=== PATIENT | female | born 1975 | race Two or more races ===

== ENCOUNTER → 2019-04-25 | Outpatient (CLI) | payer MEDICAID ==
--- NOTE | 2019-04-26 08:30 | WOMENS IMAGING REPORT ---
EXAM DESCRIPTION: BILAT SCREENING MAMMO W/CAD COMPLETED DATE/TIME: 04/25/2019 3:54 pm REASON FOR STUDY: ROUTINE BILATERAL SCREENING;Z12.31 Z12.31 ENCNTR SCREEN MAMMOGRAM FOR MALIGNANT N EOPLASM OF TRACI COMPARISON: None. EXAM PARAMETERS: Standard craniocaudal and mediolateral oblique views of each breast recorded using digital acquisition. Read with the assistance of CAD. [employer] - [employer] Version 9.2 LIMITATIONS: None. FINDINGS: No suspicious masses, suspicious calcifications or architectural distortion. No areas of c oncern. IMPRESSION: Negative MAMMOGRAM. BIRADS 1 BREAST DENSITY: d. The breasts are extremely dense, which lowers the sensitivity of mammography. BIRAD: ASSESSMENT: 1 NEGATIVE RECOMMENDATION: ROUTINE SCREENING COMMENT: The patient has been notified of the results by letter per MQSA requirements. Additional no tification policies are in place for contacting patient with suspicious or incomplete findings. Quality ID #[id number]: The [employer] recommends an annual screening mammogram for women aged 40 years or over. This facility utilizes a reminder system to ensure that all patients receive reminder letters, and/or direct phone calls for appointments. This includes reminders for routine scr eening mammograms, diagnostic mammograms, or other Breast Imaging Interventions when appropriate. Th is patient will be placed in the appropriate reminder system. TECHNICAL DOCUMENTATION: FINDING NUMBER: (1) ASSESSMENT: (1) JOB ID: [id number] [employer]- All Rights Reserved Reading location - IP/workstation name: [email or web address]
== END ==
LOC: WI 15:24
PROVIDERS: ATTEND Nurse Practitioner Family
DX: Z12.31 Encounter for screening mammogram for malignant neoplasm of breast (principal)
CPT/HCPCS: 77067

== ENCOUNTER 2019-10-05 15:03 | Emergency (ER) | payer MEDICAID ==
--- NOTE | 2019-10-05 15:30 | ER Document Report ---
HPI - HPI Time Seen by Provider: 10/05/19 15:21 Notes: The patient was evaluated during the global Covid 19 pandemic and that diagnosis was suspected/considered upon their initial presentation. Their evaluation, treatment and testing was consistent with current guidelines for patients who present with complaints or symptoms that may be related to Covid 19. Heart rate is 94. Blood pressure 120/69. Temperature 98.3. SPO2 96% on room air not hypoxic. Patient states that she has had slight burning sensation in the throat for 2 to 3 days, sinus congestion for which she has been using Rhinase with some improvement in symptoms, has had a slightly dry cough. No fever. No shortness of breath. No chest pain. No abdominal pain. Has not taken other medications for symptoms. Patient's is a smoker Full physical exam could not be performed due to Covid 19 isolation protocols. Constitutional: Nontoxic appearance, no acute distress Eyes: Nonicteric, extraocular movements intact, sclera clear ENT: Mild clear rhinitis. Posterior pharynx noninjected nonerythematous Cardiovascular: No JVD Respiratory: Nonlabored breathing, no use of accessory muscles, no tachypnea Gastrointestinal: Abdomen not distended Musculoskeletal: Moves all extremities well, normal gait Skin: Normal color Neuro: Awake alert oriented x3, normal speech Psych: Normal mood and affect Patient presents with upper respiratory symptoms worrisome for viral etiology or allergies, unlikely that this is possible Covid 19 as patient has been self isolating at home and has almost no risk factors for exposure. Patient does not have emergency worrying symptoms such as difficulty breathing, shortness of br eath, chest pain, pressure, confusion or cyanosis. Patient appears suitable for discharge as they are not of an advanced age, do not have any chronic medical conditions that are uncontrolled such as diabetes, CAD, immune deficiency, chronic lung disease or chronic kidney disease. Patient's vital signs are stable and patient is nontoxic in appearance. Good return precautions have been discussed with the patient and/or family members. Patient verbalized understanding and is agreeable with discharge plan of care at this time. Past Medical History - Social History Smoking Status: Unknown if Ever Smoked Family History: Reviewed & Not Pertinent Vertical Provider Document - INFECTION CONTROL TRAVEL OUTSIDE OF THE [place] IN LAST 30 DAYS: No Discharge - Discharge Clinical Impression: Upper respiratory infection, viral, covid-19 evaluation Condition: Stable Disposition: HOME, SELF-CARE Additional Instructions: Patient was provided with discharge information including: As a person under investigation for Covid 19, the [place] Department of Health and Human Services, division of public health advises you to adhere to the following guidance until your test results are reported to you. If your test result is positive, you will receive additional information from your provider in your local health department at that time. Remain at home until you are cleared by the health provider or public health authorities. Keep a log of visitors to your home, notify any visitors to your home with your isolation status. If you plan to move to a new address or leave the [facility], notify the local health department in your County. Call your doctor or seek care if you have an urgent medical need. Before seeking medical care, call ahead to get instructions from the provider before arriving at the medical office clinic or hospital. Notify them that you are being tested for the virus that causes Covid 19 so that arrangements can be made as necessary to prevent transmission to others in the healthcare setting. Next, notify the local health department and your County. If you medical emergency arises and you need to call 911, inform the first responders that you are being tested for the virus that causes Covid 19. Next, notify the local health department and your County If you were prescribed an albuterol inhaler 2 puffs every 4 hours as needed for shortness of breath. If you were prescribed Tessalon Perles for cough take as directed. Prescriptions: Fluticasone Propionate [Flonase Nasal [place] 50 Mcg/[place] 16 gm] 2 sprays NASL Q12 #1 inhaler Albuterol Sulfate [Proair HFA Inhalation Aerosol 8.5 gm MDI] 2 puff IH Q4H PRN #1 mdi PRN Reason: Referrals: ISABELLE CHRISTIANSEN FNP-C [Primary Care Provider] - Follow up as needed
[2019-10-05 16:13] LABS: A TYPE INFLUENZA AG NEGATIVE (NEGATIVE); B INFLUENZA AG NEGATIVE (NEGATIVE)
== END 2019-10-05 16:29 | disposition home or self-care (01) ==
LOC: EDRDC 15:03
DX: J06.9 Acute upper respiratory infection, unspecified (principal); Z20.828 Contact with and (suspected) exposure to other viral communicable diseases
CPT/HCPCS: 87070; 87804; 87880; 99211

== ENCOUNTER 2019-12-21 22:06 | Emergency (ER) | payer MEDICAID ==
--- NOTE | 2019-12-21 22:50 | ER Document Report ---
ED Medical Screen (RME) - General Chief Complaint: Chest Pain Stated Complaint: CHEST PAIN/COUGH/CONGESTION Primary Care Provider: ISABELLE CHRISTIANSEN FNP-C [Primary Care Provider] - Follow up as needed Notes: Patient is a 44-year-old female with no reported past medical history of significance who presents to the emergency department the chief complaint of left-sided chest pain that began after exercising today. She states the pain is worsened with deep inspiration and palliated somewhat slight shallow respirations. She states she has never had a pain similar to this. The pain originates in the left anterior chest and radiates around the left lateral chest wall. States is associated with a fullness in the throat. Reports that she called her primary who has given her allergy medicines in the past for similar episodes with a throat which she states has helped from time to time but the issue rebounds. She is never had work-up for these problems. I have treated and performed a rapid initial assessment of this patient. A comprehensive ED assessment and evaluation of the patient, analysis of test results and completion of medical decision making process will be conducted by additional ED providers. PHYSICAL EXAMINATION: GENERAL: Well-appearing, well-nourished and in no acute distress. A&Ox4. Answers questions appropriately. TRAVEL OUTSIDE OF THE [place] IN LAST 30 DAYS: No Physical Exam - Vital signs Vitals: Temp Pulse Resp BP Pulse Ox 99 F 85 12 148/87 H 100 12/21/19 22:17 12/21/19 22:17 12/21/19 22:17 12/21/19 22:17 12/21/19 22:17 Course - Vital Signs Vital signs: Temp Pulse Resp BP Pulse Ox 99 F 85 12 148/87 H 100 12/21/19 22:17 12/21/19 22:17 12/21/19 22:17 12/21/19 22:17 12/21/19 22:17 Doctor's Discharge - Discharge Referrals: ISABELLE CHRISTIANSEN FNP-C [Primary Care Provider] - Follow up as needed
--- NOTE | 2019-12-21 23:48 | RADIOLOGY REPORT (SQ) ---
EXAM DESCRIPTION: XR CHEST 1 VIEW COMPLETED DATE/TME: 12/21/2019 22:48 CLINICAL HISTORY: 44 years, Female, cp COMPARISON: EXAM DESCRIPTION: CLINICAL HISTORY: 44 years Female cp COMPARISON: None. FINDINGS: The cardiomediastinal silhouette appears unremarkable. No consolidating infiltrates or pleural effusions. No pneumothorax. IMPRESSION: No acute abnormality is identified. NUMBER OF VIEWS: TECHNIQUE: LIMITATIONS: None. FINDINGS: IMPRESSION: copyright 2010 [employer]- All Rights Reserved
[2019-12-21 23:58] LABS: ABSOLUTE EOSINOPHILS # (AUTO) 0.1 10^3/uL (0.0-0.6); ABSOLUTE LYMPHOCYTES (AUTO) 3.4 10^3/uL (0.5-4.7); ABSOLUTE MONOCYTES (AUTO) 0.5 10^3/uL (0.1-1.4); ABSOLUTE NEUT (AUTO) 3.7 10^3/uL (1.7-8.2); BASOPHILS % (AUTO) 0.6 % (0-2); EOSINOPHILS % (AUTO) 1.8 % (0-6); HEMATOCRIT 36.4 % (36.0-47.0); HEMOGLOBIN 12.6 g/dL (12.0-15.5); LYMPHOCYTES % (AUTO) 43.7 % (13-45); MEAN CORPUSCULAR HEMOGLOBIN 27.4 pg (27.0-33.4); MEAN CORPUSCULAR HGB CONC 34.5 g/dL (32.0-36.0); MEAN CORPUSCULAR VOLUME 79 fl (80-97); MONOCYTES % (AUTO) 6.4 % (3-13); PLATELET COUNT 177 10^3/uL (150-450); RED BLOOD COUNT 4.59 10^6/uL (3.72-5.28); RED CELL DISTRIBUTION WIDTH 13.8 % (11.5-14.0); SEGMENTED NEUTROPHILS % (AUTO) 47.5 % (42-78); TOTAL CELLS COUNTED % (AUTO) 100 %; WHITE BLOOD COUNT 7.8 10^3/uL (4.0-10.5)
[2019-12-22 00:15] LABS: PROTHROMBIN TIME 12.1 SEC (11.4-15.4)
[2019-12-22 00:16] LABS: PARTIAL THROMBOPLASTIN TIME 26.2 SEC (23.5-35.8)
[2019-12-22 01:12] LABS: ALBUMIN 4.1 g/dL (3.5-5.0); ALKALINE PHOSPHATASE 49 U/L (38-126); ANION GAP 8 (5-19); ASPARTATE AMINO TRANSFERASE 54 U/L (14-36); BILIRUBIN,TOTAL 0.5 mg/dL (0.2-1.3); BLOOD UREA NITROGEN 17 mg/dL (7-20); CALCIUM 8.6 mg/dL (8.4-10.2); CARBON DIOXIDE 22 mmol/L (22-30); CHLORIDE 109 mmol/L (98-107); CREATINE KINASE 65 U/L (30-135); GLUCOSE 118 mg/dL (75-110); POTASSIUM 3.9 mmol/L (3.6-5.0); TOTAL PROTEIN 7.4 g/dL (6.3-8.2)
--- NOTE | 2019-12-22 04:25 | ER Document Report ---
ED General - General Chief Complaint: Chest Pain Stated Complaint: CHEST PAIN/COUGH/CONGESTION Time Seen by Provider: 12/22/19 03:29 Primary Care Provider: ISABELLE CHRISTIANSEN FNP-C [Primary Care Provider] - Follow up as needed Mode of Arrival: Ambulatory Information source: Patient Notes: 44-year-old female presented to ED for complaint of chest pain to the left side of her chest this started after exercising. She states she has had pain in her throat for about 1 now for about the last month. She states she went to her doctor a month ago they gave her some steroids and antibiotics got better for little bit but is back now. She states she has not seen a doctor in a long time they just will do it on [employer] She states they gave her allergy medicine 1 day she told her that the throat was hurting again. She states she is never had any work-ups for these problems. She is alert oriented respirations regular and unlabored speaking in full sentences. She states she thinks she has some swelling inside of her throat and makes it feel like she is got something in her throat. There is very minimal white patches but no exudate no swelling to the tonsils no redness to the tonsils. TRAVEL OUTSIDE OF THE [place] IN LAST 30 DAYS: No - HPI Onset: Other - HPI Onset/Duration: Intermittent Quality of pain: Sharp Severity: Moderate Pain Level: 3 Associated symptoms: Chest pain - After exercise, Sore throat Exacerbated by: Supine, Other - Exercise Relieved by: Denies Similar symptoms previously: Yes Recently seen / treated by doctor: Yes - Related Data Allergies/Adverse Reactions: No Known Allergies Allergy (Verified 12/21/19 22:51) Home Medications: ALbuterol Past Medical History - General Information source: Patient - Social History Smoking Status: Never Smoker Chew tobacco use (# tins/day): No Frequency of alcohol use: None Drug Abuse: None Lives with: Family Family History: Reviewed & Not Pertinent Patient has suicidal ideation: No Patient has homicidal ideation: No - Past Medical History Cardiac Medical History: Reports: None Pulmonary Medical History: Reports: None EENT Medical History: Reports: None Neurological Medical History: Reports: None Endocrine Medical History: Reports: None Renal/ Medical History: Reports: None Malignancy Medical History: Reports: None GI Medical History: Reports: None Musculoskeletal Medical History: Reports None Skin Medical History: Reports None Psychiatric Medical History: Reports: None Traumatic Medical History: Reports: None Infectious Medical History: Reports: None Surgical Hx: Negative Past Surgical History: Reports: None - Immunizations Immunizations up to date: Yes Hx Diphtheria, Pertussis, Tetanus Vaccination: Yes Review of Systems - Review of Systems Constitutional: No symptoms reported EENT: Throat pain Cardiovascular: Chest pain Respiratory: Short of breath Gastrointestinal: No symptoms reported Genitourinary: No symptoms reported Female Genitourinary: No symptoms reported Musculoskeletal: No symptoms reported Skin: No symptoms reported Hematologic/Lymphatic: No symptoms reported Neurological/Psychological: No symptoms reported -: Yes All other systems reviewed and negative Physical Exam - Vital signs Vitals: Temp Pulse Resp BP Pulse Ox 99 F 85 12 148/87 H 100 12/21/19 22:17 12/21/19 22:17 12/21/19 22:17 12/21/19 22:17 12/21/19 22:17 Interpretation: Normal - General General appearance: Appears well, Alert - HEENT Head: Normocephalic, Atraumatic Eyes: Normal Pupils: PERRL Sinus: Normal Nasal: Normal Mouth/Lips: Normal Pharynx: Post nasal drainage, Other - White patches to the back of the throat. No: Erythema - no exudate, Exudate, Tonsillar hypertrophy Neck: Normal - Respiratory Respiratory status: No respiratory distress Chest status: Nontender Breath sounds: Normal. No: Rales, Rhonchi, Stridor, Wheezing Chest palpation: Normal - Cardiovascular Rhythm: Regular Heart sounds: Normal auscultation Murmur: No - Abdominal Inspection: Normal Distension: No distension Bowel sounds: Normal Tenderness: Nontender Organomegaly: No organomegaly - Back Back: Normal, Nontender - Extremities General upper extremity: Normal inspection, Nontender, Normal color, Normal ROM, Normal temperature General lower extremity: Normal inspection, Nontender, Normal color, Normal ROM, Normal temperature, Normal weight bearing. No: Tatum's sign - Neurological Neuro grossly intact: Yes Cognition: Normal Orientation: AAOx4 Soledad Coma Scale Eye Opening: Spontaneous Soledad Coma Scale Verbal: Oriented Mcfall Coma Scale Motor: Obeys Commands Soledad Coma Scale Total: 15 Speech: Normal Motor strength normal: LUE, RUE, LLE, RLE Sensory: Normal - Psychological Associated symptoms: Normal affect, Normal mood - Skin Skin Temperature: Warm Skin Moisture: Dry Skin Color: Normal Course - Re-evaluation Re-evalutation: 12/22/19 05:39 Patient came in for intermittent chest pain after she was doing some exercise. She states the pain was more up into her left shoulder than in her chest. She did feel little short of breath after the exercise. She states she is also had pain in her throat neck off and on for the last month. She states she was diagnosed with a sore throat and started on steroids and antibiotics about a month ago. She does not have any signs or symptoms of a strep throat. Her x- ray of her chest and of her soft tissue neck were both negative for any acute processes. She is alert oriented respirations regular and unlabored speaking in full sentences. We will give her a prescription of nystatin for her throat and have her follow-up with ENT if she continues to have discomfort. - Vital Signs Vital signs: Temp Pulse Resp BP Pulse Ox 98.4 F 86 18 106/77 98 12/22/19 06:00 12/22/19 06:00 12/22/19 06:00 12/22/19 06:00 12/22/19 06:00 - Laboratory Result Diagrams: 12/21/19 23:43 12/22/19 00:40 Laboratory results interpreted by me: 12/21/19 12/22/19 23:43 00:40 MCV 79 L Chloride 109 H Glucose 118 H AST 54 H ALT 81 H - Diagnostic Test Radiology reviewed: Image reviewed, Reports reviewed - EKG Interpretation by Nh EKG shows normal: Sinus rhythm Rate: Normal Rhythm: NSR Discharge - Discharge Clinical Impression: Sore throat (viral), Oral thrush Chest pain Qualifiers: Chest pain type: unspecified Qualified Code(s): R07.9 - Chest pain, unspecified Condition: Stable Disposition: HOME, SELF-CARE Additional Instructions: CHEST PAIN OF UNCLEAR CAUSE: The exact cause of your chest pain isn't clear. Fortunately, there is no evidence of a dangerous medical condition. Further testing may be required to find the source of the pain. Most often, we find that this pain is coming from the chest wall -- the muscles or rib joints in the chest. But chest pain can come from the lung and lung lining, the esophagus, the heart valves or heart lining, and even the stomach or gallbladder. Rest. Eat lightly until the pain is gone. We may prescribe medicine for pain and inflammation. You should call the physician immediately if the pain radiates to the shoulder, jaw or arms; if you start to run a fever or develop a cough; or if you develop shortness of breath, or other new or alarming symptoms. SORE THROAT: Sore throats may be caused by viruses, bacteria, or fungi. Most are due to a virus, and must get better on their own. Bacterial sore throats, particularly those due to "strep," need treatment with antibiotics. If an antibiotic is prescribed, be sure to take the medication for a full 10 days. Failure to take the antibiotic can result in complications such as rheumatic fever. Sometimes, an injection of antibiotics is given instead of pills or liquid. This single "shot" is equal in effectiveness to the oral medication. To relieve symptoms, take acetaminophen for pain. Sip clear liquids frequently, or eat popsicles or ice chips. Anesthetic sprays or lozenges may help. Make sure the air in the room is not too dry. Avoid using decongestants or antihistamines. Call the doctor if there is no improvement in two days, or if you have difficulty breathing, increasing throat pain, high fever, rash, or frequent vomiting. UPPER RESPIRATORY ILLNESS: You have a viral infection of the respiratory passages -- a "cold." This common infection causes nasal congestion, drainage, and often sore throat and cough. It is highly contagious. The disease usually lasts about 10 to 14 days. There is no "cure" for the viral infection -- it must run its course. If there is a complication, such as bacterial infection in the nose, sinuses, middle ear, or bronchial tubes, antibiotics may be required. The antibiotics won't affect the virus. Drink plenty of fluids. A humidifier may help. An expectorant medication or decongestant may make you more comfortable. Use acetaminophen or ibuprofen for fever or aches. See the doctor if fever persists over two days, if there is any significant worsening of your symptoms, or if you simply fail to improve as expected. You have been recommended treatment with Claritin 10 mg and Mucinex 600 mg. These are all wbrb-lwf-geuhbgi medications for cough cold congestion. You do need to call the go to the pharmacist to get the Sudafed from behind the counter please get a little red pills they are more effective. You could also use Flonase which is mfjx-jiw-ldzwtyo 1 spray each nostril twice a day. You could also use salt soda solution gargles. These will help to remove the drainage from the back your throat. Chloraseptic spray was [id number]-[id number] that will also help with your sore throat. Salt and soda solution gargle 1 quart of water 1 tablespoon of salt 1 teaspoon of baking soda Mixed 3 ingredients together and boil for 1 minute Placed in a covered quart jar Use 1/2 ounce of cold solution to gargle 3 times a day Oral Thrush You have thrush. This is a yeast infection of the mucous membranes in the mouth, caused by an organism called justin. Typical symptoms are redness, t enderness, and white spots "stuck" on the membranes. Thrush often occurs after treatment with antibiotics, particularly in infants. In adults, the infection is unusual. It usually requires further evaluation for a possible hidden disease such as diabetes or a problem with the immune system. Thrush is treated with antifungal medication. The medicine is rubbed into the cheeks. Several days are required for healing. You should return if you do not improve as expected, or if any new or unusual symptoms develop. FOLLOW-UP CARE: If you have been referred to a physician for follow-up care, call the physicians office for an appointment as you were instructed or within the next two days. If you experience worsening or a significant change in your symptoms, notify the physician immediately or return to the Emergency Department at any time for re-evaluation. Prescriptions: Nystatin [Mycostatin [id number] Unit/1 ml Susp 60 ml Btl] 5 ml PO Q6HP PRN #60 ml PRN Reason: Forms: Elevated Blood Pressure Referrals: ISABELLE CHRISTIANSEN FNP-C [Primary Care Provider] - Follow up as needed
--- NOTE | 2019-12-22 04:45 | RADIOLOGY REPORT (SQ) ---
EXAM DESCRIPTION: XR NECK SOFT TISSUE COMPLETED DATE/TME: 12/22/2019 03:59 CLINICAL HISTORY: 44 years, Female, pain in throat COMPARISON: None. NUMBER OF VIEWS: 2 TECHNIQUE: 2 views of the neck with soft tissue technique LIMITATIONS: None. FINDINGS: The epiglottis is normal. The airway is widely patent. The prevertebral soft tissues are normal. There is no radiopaque foreign body IMPRESSION: Unremarkable exam copyright 2011 [employer]- All Rights Reserved
[2019-12-22 06:08] VITALS: BP 106/77
--- NOTE | 2019-12-22 09:40 | EKG REPORT ---
SEVERITY:- NORMAL ECG - SINUS RHYTHM : Confirmed by: Wes Hearn 22-Dec-2019 09:40:14
== END 2019-12-22 06:05 | disposition home or self-care (01) ==
LOC: ER 22:06
DX: R07.9 Chest pain, unspecified (principal); J02.8 Acute pharyngitis due to other specified organisms; B97.89 Other viral agents as the cause of diseases classified elsewhere; B37.0 Candidal stomatitis; R06.02 Shortness of breath; R09.82 Postnasal drip; M25.512 Pain in left shoulder; Z79.899 Other long term (current) drug therapy
CPT/HCPCS: 36415; 70360; 71045; 80053; 82550; 84443; 84484; 84703; 85025; 85610; 85730; 93005; 93010; 99285